=== PATIENT | female | born 1995 | race African-American/Black ===

== ENCOUNTER 2019-10-26 15:09 | Emergency (ER) | payer BC ==
[~2019-10-26] VITALS: Ht 152.4 cm; Wt 59.0 kg
[~2019-10-26 15:09] MED LIST: NORCO 5-325 TA1 EACH PO; PRENA1 PEARL S1 EACH PO; SENOKOT-S1 TA1 PO
[2019-10-26 15:12] VITALS: BP 137/83
== END 2019-10-26 15:49 | disposition home or self-care (01) ==
LOC: ER 15:09
DX: J30.9 Allergic rhinitis, unspecified (principal); R42 Dizziness and giddiness; R26.2 Difficulty in walking, not elsewhere classified; Z91.048 Other nonmedicinal substance allergy status; Z88.1 Allergy status to other antibiotic agents

== ENCOUNTER 2021-01-13 20:48 | Emergency (ER) | payer BC ==
[~2021-01-13] VITALS: Ht 152.4 cm; Wt 68.0 kg
[2021-01-13] MEDS ORDERED: MOBIC7.5 MG PO (21:53)
[2021-01-13 22:22] VITALS: BP 122/70
== END 2021-01-13 22:15 | disposition home or self-care (01) ==
LOC: ER 20:48
DX: S93.491A Sprain of other ligament of right ankle, initial encounter (principal); Z88.1 Allergy status to other antibiotic agents; Z98.890 Other specified postprocedural states; W18.09XA Striking against other object with subsequent fall, initial encounter; Y93.89 Activity, other specified; Y92.89 Other specified places as the place of occurrence of the external cause; Y99.9 Unspecified external cause status